=== PATIENT | female | born 1970 | race Caucasian/White ===

== ENCOUNTER 2016-06-23 20:44 | Emergency (ER) | payer OTHER ==
[2016-06-23 21:13] VITALS: BP 140/89; PULSE 68; RESP 16; TEMP 98.4; O2SAT 98
[2016-06-23] MEDS ORDERED: IPRATROPIUM/ALBUTEROL 3 ML DEYVIAL IH ONE (21:33)
--- NOTE | 2016-06-23 21:42 | CPEKG ---
Heart Rate: 64 RR Interval: 938 P-R Interval: 180 QRSD Interval: 84 QT Interval: 412 QTC Interval: 425 P Matador: 65 QRS Matador: 68 T Wave Matador: 59 EKG Severity - NORMAL ECG - EKG Impression: SINUS RHYTHM Electronically Signed By: Pascual Baker 23-Jun-2016 23:55:40
--- NOTE | 2016-06-23 22:45 | UCPHY ---
H & P Patient Type: New Chief Complaint Nursing Narrative: asthma like s/s for the past week . saw pcp on wednesday and . Today hurts to breathe in upper chest. and headache. Time Seen by Provider: 06/23/16 21:20 HPI/ROS: This patient reports moderate upper chest pain described as burning in nature" likely breathing cold air causes burning in your chest." The symptoms are occurring in the setting of a URI in a patient with reactive airway disease. The intensity of the pain is 4/10 at its peak. She became anxious when she started looking up chest pain on the Internet and came in for evaluation. She saw Dr. Peraza her primary care physician in April with onset of cough and mild wheeze was diagnosed with bronchitis treated with a Z-James x2 and albuterol inhaler with ongoing symptoms she read returned this past week was started on Qvar 4 days prior to arrival in addition to the ongoing use the albuterol. A peak flow was done in her primary care physician's office and she reports that she was about 75% of expected peak flow at that time 4 days ago. She also reports that she has had dyspnea on exertion with going up and down stairs intermittently since April and seems as worsened slightly over the past day or 2. ROS: No fevers or chills. No fatigue. HEENT: Mild intermittent nasal congestion. No facial pain. Neuro: No headache or confusion pulmonary: No pleuritic pain. No respiratory distress. No hemoptysis. Cardiovascular: No calf swelling or pain. No lightheadedness. No heart palpitations. No significant change in her chest discomfort with change in position bending forward or lying supine. GI: No nausea vomiting. 10 point ROS is otherwise negative. Source: Patient Exam Limitations: No limitations - Personal History LMP (Females 10-55): 1-7 Days Ago - Medical/Surgical History PMH: Reactive airway disease Other PMH: Allergy induced RAD. PCP Braydon Peraza. Flu vacc NONE. Tetanus ??? - Family History Significant Family History: No pertinent family hx - Social History Smoking Status: Never smoked Alcohol Use: Occasionally Drug Use: None - Physical Exam Exam: General Appearance: Alert, no distress. Eyes: Pupils equal and round no pallor or injection. ENT, Mouth: Mucous membranes moist. Respiratory: There are no retractions, lungs are clear to auscultation. Cardiovascular: Regular rate and rhythm. No murmur gallop rub. No peripheral edema. No calf swelling or tenderness. No JVD. Gastrointestinal: Abdomen is soft and nontender, no masses, bowel sounds normal. Neurological: Alert with no focal deficits Skin: Warm and dry, no rashes. Musculoskeletal: Neck is supple nontender. Extremities are symmetrical, full range of motion. Psychiatric: Mood and affect normal DIFFERENTIAL DIAGNOSIS: After history and physical exam differential diagnosis was considered for bronchial pain, chest wall pain, pericarditis, pneumonia, musculoskeletal pain Constitutional: Initial Vital Signs Temperature (C) 36.9 C 06/23/16 21:11 Heart Rate 68 06/23/16 21:11 Respiratory Rate 16 06/23/16 21:11 Blood Pressure 140/89 H 06/23/16 21:11 O2 Sat (%) 98 06/23/16 21:11 O2 Delivery Mode Room Air Allergies/Adverse Reactions: No Known Allergies Allergy (Verified 06/23/16 21:13) Home Medications: Medication Instructions Recorded Albuterol 04/20/12 Estrogens, Conjugated 06/23/16 Flonase Nasal [place] 06/23/16 Progesterone 06/23/16 Testosterone 06/23/16 predniSONE 40 mg PO DAILY #10 tab 06/23/16 Medical Decision Making - Diagnostics EKG Interpretation: 12 lead EKG performed at 9:43 p.m. reveals sinus rhythm at 64 Overall assessment normal EKG For complete read please refer to trace master Imaging: Chest x-ray: Normal by my interpretation ED Course/Re-evaluation: Her initial peak flow is 375 with predicted of 475 After DuoNeb her peak flow improved to 400. She has a feeling of better air movement and her chest discomfort is decreased to 1 or 2/10. Discussion: Feel this patient's source of pain is bronchial. She agrees with this. Do not find evidence of pneumonia, coronary syndrome, obvious findings for pericarditis or other concerning findings tonight. She is comfortable with plan to start prednisone given her lack of improvement Qvar but will start that in the morning. I think the she is viral URI complicated by reactive airway disease and bronchial discomfort. - Data Points Medications Given: Discontinued Medications Albuterol/Ipratropium (Duoneb) 3 ml IH EDNOW ONE Stop: 06/23/16 21:34 Last Admin: 06/23/16 21:50 Dose: 3 ml Departure - Departure Disposition: Home, Routine, Self-Care Clinical Impression: Viral URI with cough, Chest wall pain Condition: Good Instructions: Chest Pain (ED), Reactive Airways Disease (ED) Additional Instructions: Diagnoses: 1. URI with cough 2. Reactive airway disease 3. Chest pain Plan: Humidifier Ibuprofen and/or Tylenol for chest discomfort if needed Continue your albuterol inhaler with spacer for cough, wheeze or shortness of breath Continue your Qvar Start prednisone in the morning after breakfast in addition intake as prescribed. Monitor your peak flow. Follow up with primary care physician sometime in the next 3-7 days Go to the emergency department for any significant worsening despite the treatment plan Referrals: VÍCTOR PERAZA [Primary Care Provider] - As per Instructions Prescriptions: predniSONE 40 mg PO DAILY #10 tab - PQRS PQRS Measurement: NA
== END 2016-06-23 23:00 | disposition home or self-care (01) ==
LOC: CED 20:44
DX: J06.9 Acute upper respiratory infection, unspecified (principal); R07.9 Chest pain, unspecified
CPT/HCPCS: 71020-PO; 93010-PO; 99204-PO; G0463-PO

== ENCOUNTER → 2017-01-29 | Outpatient (CLI) | payer OTHER | LOC: FIMAGING 09:16 | PROVIDERS: ATTEND Family Medicine | DX: Z12.31 Encounter for screening mammogram for malignant neoplasm of breast (principal) | CPT/HCPCS: G0202 ==

== ENCOUNTER → 2018-08-13 | Outpatient (CLI) | payer OTHER | LOC: FIMAGING 10:52 | PROVIDERS: ATTEND Family Medicine | DX: Z12.31 Encounter for screening mammogram for malignant neoplasm of breast (principal) ==